=== PATIENT | female | born 1965 | race Caucasian/White ===

== ENCOUNTER 2022-12-22 07:46 | Day surgery (SDC) | payer OTHER ==
[~2022-12-22] VITALS: Ht 170.2 cm; Wt 99.8 kg
[2022-12-22 08:42] LABS: HCG,QUAL RESULT NEGATIVE (NEGATIVE)
[2022-12-22] MEDS ORDERED: MEPERIDINE 50 MG/ML VIAL ONE (09:07)
[2022-12-22] MEDS ORDERED: SIMETHICONE 40 MG/0.6 ML ML ONE (09:07)
[2022-12-22] MEDS ORDERED: MIDAZOLAM HCL 5 MG/5 ML VIAL ONE ×2 (09:07→09:28)
[2022-12-22 12:42] VITALS: BP_SYST 122
== END 2022-12-22 10:45 | disposition home or self-care (01) ==
LOC: SDS 07:46 → SMU 07:47 → SDS 10:45
PROVIDERS: ATTEND Internal Medicine Gastroenterology
DX: K21.9 Gastro-esophageal reflux disease without esophagitis (principal); K29.50 Unspecified chronic gastritis without bleeding; E66.01 Morbid (severe) obesity due to excess calories; Z90.49 Acquired absence of other specified parts of digestive tract; Z68.43 Body mass index [BMI] 50.0-59.9, adult
CPT/HCPCS: 43239; 87081; 84703; 36415; 88305; 88312; 88313; 99152; G0378; J2250; J2175